=== PATIENT | male | born 1960 | race Caucasian/White ===

== ENCOUNTER 2017-12-27 13:38 | Inpatient (IN) ==
[2017-12-27] MEDS ORDERED: Sodium Chloride 0.9% 1,000 ML PRIMARY IV ONE (14:00)
--- NOTE | 2017-12-27 14:17 | EKG ---
[address] [address] Measurements Intervals [place] Rate: 89 P: 63 PA: 142 QRS: 74 QRSD: 105 T: 47 QT: 349 QTc: 395 Interpretive Statements SINUS RHYTHM WITH SINUS ARRHYTHMIA No previous ECG available for comparison Electronically Signed On 12-27-17 17:04:43 MDT by Horacio Baeza [email or web address]
[2017-12-27 14:20] LABS: BASOPHILS % (AUTO) 1.2 % (0-1); EOSINOPHILS # (AUTO) 0.18 10*3/UL; EOSINOPHILS % (AUTO) 2.1 % (0-8); Hematocrit [HCT] 40.8 % (42.0-52.0); Hemoglobin [HGB] 14.5 g/dL (14.0-18.0); LYMPHOCYTES # (AUTO) 1.64 10*3/uL; MEAN CORPUSCULAR HEMOGLOBIN 32.2 PG (27-31); MEAN CORPUSCULAR HGB CONC 35.5 g/dL (33-37); MEAN CORPUSCULAR VOLUME 90.7 FL (80-90); MEAN PLATELET VOLUME 9.7 FL (7.4-12.2); MONOCYTES # (AUTO) 0.98 10*3/UL (0.3-0.8); MONOCYTES % (AUTO) 11.3 % (5-15); NEUTROPHILS # (AUTO) 5.73 10*3/UL; NEUTROPHILS % (AUTO) 66.3 % (50-80)
[2017-12-27 14:27] LABS: PLATELET MORPHOLOGY COMMENT NORMAL MORPHOLOGY (NORM); RBC MORPHOLOGY COMMENT NORMAL MORPHOLOGY (NORM); WBC MORPHOLOGY COMMENT NORMAL MORPHOLOGY (NORM)
[2017-12-27 14:31] LABS: BLOOD UREA NITROGEN 29 mg/dL (7-22); BUN/CREATININE RATIO 24.16 (6-20); SERUM ALBUMIN 4.4 g/dL (3.5-4.8)
[2017-12-27 14:38] LABS: HEMOGLOBIN A1C 6.97 % (4.2-6.0)
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
--- NOTE | 2017-12-27 15:53 | DI ---
XR FOOT COMPLETE MIN 3VW 12/27/2017 2:01 PM HISTORY: foot ulcer Comparison: None. Findings: Portable AP, lateral, and oblique views of the right foot show no acute fracture or disloca tion. Early tibiotalar subchondral sclerosis and marginal osteophyte formation is present. There is a small heel spur. Early distal Achilles enthesopathy is noted. Atheromatous vascular calcifications are present in the soft tissues of the distal lower extremity. There is soft tissue thickening with s uperficial gas overlying the plantar aspect of the distal aspect of the lateral forefoot, consistent with reported history of ulcer. There is no underlying periosteal elevation or cortical erosion. Impression: 1. There is evidence of an ulcer in the soft tissues overlying the plantar aspect of the distal later al forefoot. There is no radiographic evidence of osteomyelitis. Bone scan and MRI are more sensitive . 2. Tibiotalar osteoarthritis. 3. Small heel spur. 4. Early distal Achilles enthesopathy.
[2017-12-27] MEDS ORDERED: ONDANSETRON 4 MG/2 ML VIAL IVP PRN (16:17)
[2017-12-27] MEDS ORDERED: CALCIUM CARBONATE 500 MG (TUMS) CHEWABLE TABLET PO PRN (16:17)
[2017-12-27] MEDS ORDERED: LIDOCAINE W/ SODIUM BICARB 0.5 ML SYR SUBD PRN (16:17)
[2017-12-27] MEDS ORDERED: ACETAMINOPHEN 325 MG TABLET PO PRN (16:17)
--- NOTE | 2017-12-27 16:22 | PDOC ---
HPI - History of Present Illness Date of Service: 12/27/17 Time of Service: 16:30 Chief Complaint: Sores one of the bottom of the right foot and 1 and the lateral side of the foot History of Present Illness: This is a 57 years old male with medical history significant for history of diabetes, hypertension and depression who came into the hospital with a two- week history of sores on the right foot. He said about 2 weeks ago developed one on the lateral aspect of the right foot and a week ago developed one on the sole of the foot in the area of the fifth metatarsal head. There is some drainage and the area looks bigger than what it was and there is some redness on the dorsum of the foot and because of that he came into the ER. In the ER was found to have a diabetic foot ulcer infection and was admitted to the hospital. He said he has some pain when he puts weight on it but he has a decreased sensation apparently on the soles of his feet. He is denying fever or chills. Past Medical History Medical History: 1. Diabetes on insulin for about 10 years. 2. Hypertension. 3. Depression Surgical History: 1. History of tonsillectomy. 2. History of surgery for nasal fracture from his description Family History: Reviewed an Not Pertinent Past Social History: He does not smoke, quit drinking 5 months ago no drugs. He Just moved to [place] yesterday from [place]. He is originally from [place] and moved here for work. He works at [employer] and at [employer]. Tobacco Use: Never Smoker In the Past 12 Months, Have Used or Abuse Any of the Following Substance: None Alcohol Use: None Medication / Allergies Home Medications: Home Medications 3 Medication Instructions Recorded Confirmed Type Aripiprazole [Abilify] 10 mg PO DAILY 12/27/17 12/27/17 History Insulin NPL/Insulin Lispro 50 unit SUBCUT BID 12/27/17 12/27/17 History [Humalog Mix 75-25 Pen] Lisinopril 40 mg PO DAILY 12/27/17 12/27/17 History Metformin HCl 1,000 mg PO BID 12/27/17 12/27/17 History Venlafaxine HCl [Effexor] 75 mg PO DAILY 12/27/17 12/27/17 History Venlafaxine HCl [Effexor] 100 mg PO DAILY 12/27/17 12/27/17 History Allergies/Adverse Reactions: Allergies 3 Allergy/AdvReac Type Severity Reaction Status Date / Time No Known Allergies Allergy Verified 12/27/17 13:48 Review of Systems - Review of Systems All Systems: Reviewed & No Additional Complaints Except as Stated Exam - Vitals Vital Signs: Vital Signs Temperature 97.6 F Temperature Source Temporal Artery Scan Pulse Rate [Pulse Oximeter 99 Right] Respiratory Rate 16 Blood Pressure [Left Arm] 150/71 Pulse Ox 93 Oxygen Delivery Method Room Air Height 6 ft 1 in Weight 228 lb 14.4 oz - General General Appearance: No Acute Distress, Cooperative - Head Head Exam: Normal Inspection - Eye Eye Exam: POSITIVE: Normal Appearance - ENT ENT Exam: POSITIVE: Normal Exam - Neck Neck Exam: Normal Inspection - Respiratory Respiratory Exam: POSITIVE: Clear to Auscultation - Bilaterally - Cardiovascular Cardiovascular Exam: POSITIVE: RRR - GI/Abdominal GI/Abdominal Exam: POSITIVE: Normal Bowel Sounds, Non Tender, Non Distended, Soft, No Organomegaly - Rectal Rectal Exam: POSITIVE: Deferred - External Exam: POSITIVE: Deferred Exam: POSITIVE: Deferred - Extremities Additional Extremities Exam Details: 2 ulcers one on the lateral aspect of the right foot and one on the head of the right fifth metatarsal. There is erythema on the dorsum of the foot and also the lateral aspect of it. No much tenderness. There is some discoloration around the ulceration. Pulses were present on the posterior dorsal. I could not feel the posterior tibial artery well. There is also black eschar at the base of the ulcer. Results - Labs CBC and BMP: 12/27/17 14:05 12/27/17 14:05 - EKG Data Rate: Normal EKG Shows Normal: Sinus Rhythm - EKG Data When Compared to Previous EKG(s) There Are: Other (EKG showed sinus rhythm with sinus arrhythmia) - Imaging Status: Report Reviewed by Me (X-ray foot 1. There is evidence of an ulcer in the soft tissues overlying the plantar aspect of the distal lateral forefoot. There is no radiographic evidence of osteomyelitis. Bone scan and MRI are more sensitive. 2. Tibiotalar osteoarthritis. 3. Small heel spur. 4. Early distal Achilles enthesopathy.) Assessment and Plan - Patient Problems (1) Diabetic foot ulcer Current Visit: Yes Status: Acute Comment: We'll start him on ertapenem, I did speak with Dr. Pedraza and he will see him. Code(s): E11.621 - Type 2 diabetes mellitus with foot ulcer; L97.509 - Non- pressure chronic ulcer of other part of unspecified foot with unspecified severity (2) Diabetes Current Visit: Yes Status: Acute Comment: Will Put him on his insulin. We'll watch his blood sugar. Code(s): E11.9 - Type 2 diabetes mellitus without complications (3) Depression Current Visit: Yes Status: Acute Comment: Same medications Code(s): F32.9 - Major depressive disorder, single episode, unspecified (4) Hypertension Current Visit: Yes Status: Acute Comment: Same med Code(s): I10 - Essential (primary) hypertension
[2017-12-27] MEDS ORDERED: Hold Metformin-See Instruction 1 EACH MIS PRN (17:14)
--- NOTE | 2017-12-27 17:39 | CONSULT ---
Consult Note - Consult Reason for Consult: Orthopedic Consult Primary Care Provider: Marvin CHRISTOPHER - History of Present Illness History of Present Illness: Benigno is a pleasant 57-year-old male admitted for a diabetic right foot ulcer. This is been going on for approximately 2 weeks. 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 He noticed that it is been increasing in size and redness has been increasing. For that reason he came in today and was admitted to Dr. Springer's service. Dr. Springer asked me to see the patient. He had x- rays of his right foot that don't show any bony destruction at this point. The x-rays do show soft tissue ulceration. Patient has some soreness associated with this. He is very concerned about getting back to work as soon as possible. Denies feeling poorly. No fevers or chills reported. Vital signs are stable patient is afebrile. Right foot exam reveals a proximally 3-4 cm area of necrosis along the lateral aspect of the right foot. There is some thick callus over the top of this that I debrided with scissors. There is a foul odor present. The skin in this area appears dark purple almost black. There is some discharge coming from the midportion of the involved area. There is also epidermal lysis tracking along the plantar aspect of the foot toward the mid part of the foot. There is some associated cellulitis. MRI is pending. C-reactive protein is 2.2. White blood cell count is 8000 with no left shift. Impression is diabetic foot ulcer with cellulitis and foul order. Possible early-stage osteomyelitis. Plan: Is to get an MRI in the morning. Depending on the findings of the MRI, plan at least an I&D of the foot. Possible fifth ray amputation depending on the bony involvement. I will see him in the morning. We will keep him nothing by mouth after midnight. Past Medical History Medical History: 1. Diabetes on insulin for about 10 years. 2. Hypertension. 3. Depression Surgical History: 1. History of tonsillectomy. 2. History of surgery for nasal fracture from his description Family History: Reviewed an Not Pertinent Past Social History: He does not smoke, quit drinking 5 months ago no drugs. He Just moved to [place] yesterday from [place]. He is originally from [place] and moved here for work. 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 Tobacco Use: Never Smoker In the Past 12 Months, Have Used or Abuse Any of the Following Substance: None Alcohol Use: None Medication / Allergies Home Medications: Home Medications 3 Medication Instructions Recorded Confirmed Type Aripiprazole [Abilify] 10 mg PO DAILY 12/27/17 12/27/17 History Insulin NPL/Insulin Lispro 50 unit SUBCUT BID 12/27/17 12/27/17 History [Humalog Mix 75-25 Pen] Lisinopril 40 mg PO DAILY 12/27/17 12/27/17 History Metformin HCl 1,000 mg PO BID 12/27/17 12/27/17 History Venlafaxine HCl [Effexor] 75 mg PO DAILY 12/27/17 12/27/17 History Venlafaxine HCl [Effexor] 100 mg PO DAILY 12/27/17 12/27/17 History Allergies/Adverse Reactions: Allergies 3 Allergy/AdvReac Type Severity Reaction Status Date / Time No Known Allergies Allergy Verified 12/27/17 13:48 Exam - Vitals Vital Signs: Vital Signs Temperature 98 F Temperature Source Temporal Artery Scan Pulse Rate [Pulse Oximeter 87 Right] Pulse Rate 86 Respiratory Rate 18 Blood Pressure [Left Arm] 132/74 Blood Pressure 145/80 Pulse Ox 94 Oxygen Delivery Method Room Air Height 6 ft 1 in Weight 228 lb 14.4 oz Results - Labs CBC and BMP: 12/27/17 14:05 12/27/17 14:05
[2017-12-27] MEDS: Ertapenem Inj 1 GM in Sodium Chloride 0.9% 100 ML IV SCH (18:29)
[2017-12-27] MEDS ORDERED: Insulin NPH/Reg 70/30 Kwikpen 100 UNIT/ML INSULN.PEN SUBCUT SCH (21:00)
[2017-12-28] MEDS: D5-1/2NS 1,000 ML PRIMARY IV SCH ×3 (03:33→21:26)
[2017-12-28 05:35] LABS: Hematocrit [HCT] 41.1 % (42.0-52.0); Hemoglobin [HGB] 14.2 g/dL (14.0-18.0); MEAN CORPUSCULAR HEMOGLOBIN 31.5 PG (27-31); MEAN CORPUSCULAR HGB CONC 34.5 g/dL (33-37); MEAN CORPUSCULAR VOLUME 91.1 FL (80-90); RED BLOOD COUNT 4.51 10^6/uL (4.70-6.10)
[2017-12-28 06:00] LABS: BLOOD UREA NITROGEN 21 mg/dL (7-22); BUN/CREATININE RATIO 26.25 (6-20); SERUM ALBUMIN 3.8 g/dL (3.5-4.8)
[2017-12-28 06:19] LABS: BAND NEUTROPHILS % 0 % (0-10); BASOPHILS % (MANUAL) 1 % (0-1); EOSINOPHILS % (MANUAL) 3 % (0-8); METAMYELOCYTES % 0 %; MONOCYTES % (MANUAL) 9 % (0-12); MYELOCYTES % 0 %; NEUTROPHILS % (MANUAL) 57 % (50-80); PLATELET MORPHOLOGY COMMENT NORMAL MORPHOLOGY (NORM); PROMYELOCYTES % 0 %; RBC MORPHOLOGY COMMENT NORMAL MORPHOLOGY (NORM); WBC MORPHOLOGY COMMENT NORMAL MORPHOLOGY (NORM)
[2017-12-28] MEDS ORDERED: BUPivacaine Inj 0.5% PF (5mg/ml) 30ml vial ONE (08:23)
[2017-12-28] MEDS ORDERED: LISINOPRIL 20 MG TABLET PO SCH (09:00)
--- NOTE | 2017-12-28 09:59 | PDOC(PROG) ---
Date of Service: 12/28/17 Time of Service: 10:00 Interval History: Subjective Patient is denying new symptoms. Doesn't have much pain while he is laying down. He did not have his MRI yet. Objective : Data - Labs CBC and BMP: 12/28/17 04:45 12/28/17 04:45 Objective : Exam - General General Appearance: No Acute Distress, Cooperative - Head Head Exam: Normal Inspection - Eye Eye Exam: Normal Appearance - ENT ENT Exam: Normal Exam - Neck Neck Exam: Normal Inspection - Respiratory Respiratory Exam: Clear to Auscultation - Bilaterally - Cardiovascular Cardiovascular Exam: RRR - GI/Abdominal GI/Abdominal Exam: Normal Bowel Sounds, Non Tender, Non Distended, Soft, No Organomegaly - Rectal Rectal Exam: Deferred - External Exam: Deferred - Extremities Additional Extremities Exam Details: Dressing applied to the right foot - Back Back Exam: Normal Inspection - Neurological Neurological Exam: Alert, Oriented x 3, CN II-XII Intact, No Facial Droop, Speech Intact / Clear, Moves All Extremities Equally - Psychiatric Psychiatric Exam: Normal Affect Assessment and Plan - Patient Problems (1) Diabetic foot ulcer Current Visit: Yes Status: Acute Comment: He'll have an MRI today. Continue ertapenem. Probably I&D again today by Dr. Pedraza. Code(s): E11.621 - Type 2 diabetes mellitus with foot ulcer; L97.509 - Non- pressure chronic ulcer of other part of unspecified foot with unspecified severity (2) Diabetes Current Visit: Yes Status: Acute Comment: Will put him on the 70/30 postsurgery Code(s): E11.9 - Type 2 diabetes mellitus without complications (3) Depression Current Visit: Yes Status: Acute Comment: Same med Code(s): F32.9 - Major depressive disorder, single episode, unspecified (4) Hypertension Current Visit: Yes Status: Acute Comment: Hold lisinopril for now Code(s): I10 - Essential (primary) hypertension
[2017-12-28] MEDS: VENLAFAXINE XR 75 MG CAP PO SCH (11:24)
[2017-12-28] MEDS: ARIPIPRAZOLE 10 MG PO SCH (11:24)
[2017-12-28] MEDS: Insulin NPH/Reg 70/30 Kwikpen 100 UNIT/ML INSULN.PEN SUBCUT SCH ×2 (13:39→20:11)
[2017-12-28] MEDS: Lactated Ringers 1,000 ML PRIMARY IV SCH (14:19)
[2017-12-28] MEDS ORDERED: BUPivacaine 0.5%/Epi Inj 50 ML VIAL ONE (15:03)
[2017-12-28] MEDS ORDERED: LIDOCAINE 2%/ EPI 1:200,000 - 20 ML VIAL ONE (15:03)
[2017-12-28] MEDS ORDERED: fentaNYL Inj 250 MCG/5 ML VIAL ONE (15:04)
[2017-12-28] MEDS ORDERED: MIDAZOLAM 5 MG/1 ML ONE (15:04)
[2017-12-28] MEDS ORDERED: LIDOCAINE W/ SODIUM BICARB 0.5 ML SYR ONE (15:07)
--- NOTE | 2017-12-28 15:15 | ORTHO.PROG ---
Last Taken Vital Signs: Vital Signs - Last Taken Temperature 97.5 F 12/28/17 12:18 Pulse Rate 66 12/28/17 12:18 Respiratory Rate 18 12/28/17 12:18 Blood Pressure 116/66 12/28/17 12:18 Pulse Ox 91 12/28/17 12:18 Subjective: Patient had his MRI today. Doesn't report significant amount pain. Objective: Vital signs are stable patient is afebrile. Right foot shows black eschar underneath the fifth metatarsal head. There is some cellulitis associated with it. Mild drainage. MRI does not show any enhancement of the fifth metatarsal or the proximal phalanx. There is some fluid seen underneath the fifth MTP joint region appears to be extra capsular. Assessment: Impression: Diabetic foot ulcer with cellulitis. Plan: Plan: I have discussed the options with the patient. Do not feel like he needs a fifth reamputation given the fact that the bone is not involved on MRI. I think is reasonable to consider an I&D. The risks with this include delayed healing, need for dressing changes, and even the possibility of need for further surgery in the future. He understands this and agrees to proceed. Consent form will be signed.
--- NOTE | 2017-12-28 15:28 | CRNA.PROCE ---
Nerve Block Documentation - - Type of Nerve Block Used: Right Popliteal Fossa Block Position for Nerve Block: Prone Moniters Used During Block: SPO2, NIBP Oxygen Supplemented: Yes Sedation Used - Enter Amount in Comment Field [ANES.SEDAT]: Midazolam (mg): Yes (2mg), Fentanyl (mcg): Yes (50mcg) Skin Prep Used: ChloroPrep Draped: No Technique: Nerve Stimulator Nerve Block Needle Used: 80 mm ProBlk II Stimulation Hz: 1.0 Stimulation Staring mA: 1.0 Stimulation Ending mA: 0.4 Local Anesthetic - Enter Amt in Comment Field [ANES.LOCNB]: 0.5 % Bupivicaine with Epinephrine 1:200,000 (mL): Yes (20cc), 2 % Xylocaine with Epinephrine 1: 200,000 (mL): Yes (20cc) - - PreOp Block : Time In: 15:03 PreOp Block : Time Out: 15:18 Anesthesia Time - Other Weight: 98.747 kg Height: 6 ft 1 in Body Mass Index (BMI): 28.7
[2017-12-28] MEDS ORDERED: PROPOFOL 10 MG/1 ML (200 MG/20 ML) VIAL IV ONE (15:31)
[2017-12-28] MEDS ORDERED: NEOMYCIN/BACITRACIN/POLYMYXIN 0.9 GM OINT PACKET TOPICAL ONE (16:14)
--- NOTE | 2017-12-28 16:44 | ORTHO.OP ---
Surgery Date: 12/28/17 Preoperative Diagnosis: Right diabetic foot ulcer Postoperative Diagnosis: Same Procedure: Irrigation and debridement of right diabetic foot ulcer Surgeon: Silas Pedraza MD Anesthesia Provider: Sidney Villanueva CRNA Anesthesia Type: Regional Estimated Blood Loss (mL): 10 Fluids: Crystalloids Complications: None Operative Summary: Taken to recovery in stable condition.
--- NOTE | 2017-12-28 16:45 | CRNA.PROGR ---
Anesthesia Time - Procedure/Recovery Time Start Date: 12/28/17 End Date: 12/28/17 Anesthesia : Time In: 15:45 Anesthesia : Time Out: 16:43 Anesthesia : Total Time: 58 - Block Time Start Date: 12/28/17 End Date: 12/28/17 PreOp Block : Time In: 15:03 PreOp Block : Time Out: 15:18 PreOp Block : Total Time: 15 - Total Anesthesia Time Total Anesthesia Time (minutes): 73 - Other Weight: 98.747 kg Height: 6 ft 1 in Body Mass Index (BMI): 28.7 Physical Status: P2 (with sedation) Anesthesia Type: Popliteal Fossa Block (with sedation)
--- NOTE | 2017-12-28 16:45 | CRNA.PROGR ---
Post Anesthesia Phase II - Post Anesthesia Phase II Patient Stable and Discharged To: Phase II Care Assumed By Surgeon: Silas Pedraza MD Temperature: 97.5 F Pulse Rate: 86 Respiratory Rate: 18 Blood Pressure: 145/80 Pulse Ox: 91 Total Slava Score at Discharge: 9 Post Anesthesia Discharge Criteria Met: Yes
[2017-12-28] MEDS: Ertapenem Inj 1 GM in Sodium Chloride 0.9% 100 ML IV SCH (19:08)
--- NOTE | 2017-12-28 23:28 | DI ---
MRI Lower Extremity WWO Contst 12/28/2017 7:00 AM History: ulcer right foot COMPARISON: Right foot x-ray 12/27/2017. TECHNIQUE: Routine multiecho multiplanar MR imaging of the right foot was performed without and with contrast. 20 mL of ProHance intravenous contrast was administered without immediate complication. FINDINGS: A skin defect is noted along the plantar aspect of the distal lateral forefoot. There is a 10 x 2 mm fluid collection underlying the defect in the deep soft tissues superficial to the flexor t endon and plantar plate of the fifth ray. The fluid collection does not enhance following the adminis tration of intravenous contrast. There is no underlying cortical disruption of the fifth metatarsal o r bone marrow edema to suggest osteomyelitis. Alignment is normal. There is no acute fracture. The extensor and flexor tendons demonstrate normal signal and morphology. The plantar plates are inta ct. The LisFranc ligament is intact. Imaged portions of the plantar fascia are unremarkable. The sesa moids exhibit normal MR morphology. There are no significant arthritic changes. There is moderate marcos ma of the intrinsic musculature of the foot. IMPRESSION: 1. Small nonenhancing fluid collection in the plantar aspect of the distal lateral forefoot without M R findings to suggest osteomyelitis. 2. Moderate edema of the intrinsic musculature of the foot.
[2017-12-29] MEDS: VENLAFAXINE XR 75 MG CAP PO SCH (09:30)
[2017-12-29] MEDS: Insulin NPH/Reg 70/30 Kwikpen 100 UNIT/ML INSULN.PEN SUBCUT SCH ×2 (09:31→12:20)
[2017-12-29] MEDS: ARIPIPRAZOLE 10 MG PO SCH (09:31)
[2017-12-29 11:52] VITALS: BP 142/73; RESP 16; TEMP 97.7; O2SAT 94
[2017-12-29] MEDS: Lactated Ringers 1,000 ML PRIMARY IV SCH (13:37)
[2017-12-29] MEDS ORDERED: NEOMYCIN/BACITRACIN/POLYMYXIN 0.9 GM OINT PACKET TOPICAL PRN (15:00)
[2017-12-29] MEDS: Ertapenem Inj 1 GM in Sodium Chloride 0.9% 100 ML IV SCH (15:06)
--- NOTE | 2017-12-29 15:19 | DCSUMMARY ---
Hospitalization Summary Admit Date: 12/27/2017 Discharge Date: 12/29/17 Hospital Course: Discharge diagnoses 1. Diabetic foot ulcer status post incision and drainage 2. History of diabetes 3. History of hypertension 4. History of depression 5. Elevated LFTs need follow-up Hospital course This is a 57 years old male with medical history significant for history of diabetes, hypertension and depression who came into the hospital with a two- week history of sores on his right foot. He said about 2 weeks ago he developed one on the lateral aspect of the right foot and a week ago he developed one on the sole of the foot in the area of the fifth metatarsal head. There was some drainage and the area looked bigger now than what it was and there is some redness on the dorsum of the foot and because of that he came into the ER. In the ER he was found to have a diabetic foot ulcer infection and was brought to the hospital. He did say that he had some pain when he put some weight on his foot but he has a decreased sensation to the sole of both feet. He was denying fever or chills. His white count was not elevated. His exam was remarkable for presence of 2 ulcers on the foot one of the lateral aspect of the foot and one on the plantar aspect of the head of the fifth metatarsal both on the right foot. There is some slight redness on the dorsum of the foot. There was no significant tenderness. The base of the ulcer was black. An x-ray of the foot did not show evidence for osteomyelitis. An MRI of the foot did not show evidence of osteomyelitis. Dr. Pedraza was consulted and did some bedside debridement and he took him to surgery and did incision and drainage. The next day he was denying complaint. The ER did take a culture from the ulcer when he came in and shows growth of gram-positive cocci. Patient was put on ertapenem when he was admitted to the hospital. On the day of discharge he was doing better. The ulcer looked better after the debridement. I suggested to the patient that we keep him another day and wait for the culture and continue IV antibiotics however he declined to stay. We gave him another dose of ertapenem then we discharge him on Augmentin and doxycycline. He will follow-up with the Dr. Pedraza on Wednesday to change his dressing and reexamin the ulcers. There was some mild elevation in his LFT this need to be followed up later on as an outpatient. Discharge instruction Diet diabetic Activity as tolerated Medications Current Medication(s) 3 Medication Instructions Recorded Confirmed Type Aripiprazole [Abilify] 10 mg PO DAILY 12/27/17 12/27/17 History Insulin NPL/Insulin Lispro 50 unit SUBCUT BID 12/27/17 12/27/17 History [Humalog Mix 75-25 Pen] Lisinopril 40 mg PO DAILY 12/27/17 12/27/17 History Metformin HCl 1,000 mg PO BID 12/27/17 12/27/17 History Venlafaxine HCl [Effexor] 225 mg PO DAILY 12/27/17 12/27/17 History Amoxicillin/Potassium Clav 1 ea PO BID #20 tab 12/29/17 Rx [Augmentin 875-125 Tablet] Doxycycline Hyclate 100 mg PO BID #20 tab 12/29/17 Rx Follow-up with PCP in 1-2 weeks, follow-up with Dr. Pedraza as scheduled on Wednesday Condition at discharge was stable for discharge Exam - Vitals Vital Signs: Vital Signs Temperature 97.7 F Temperature Source Temporal Artery Scan Pulse Rate [Pulse Oximeter 72 Right] Pulse Rate 76 Respiratory Rate 16 Blood Pressure [Right Arm] 142/73 Blood Pressure [Left Arm] 139/67 Blood Pressure 149/73 Pulse Ox 94 Oxygen Flow Rate RA Oxygen Delivery Method Room Air Height 6 ft 1 in Weight 221 lb 12.8 oz - General General Appearance: No Acute Distress, Cooperative - Head Head Exam: Normal Inspection - Eye Eye Exam: POSITIVE: Normal Appearance - Neck Neck Exam: Normal Inspection - Respiratory Respiratory Exam: POSITIVE: Clear to Auscultation - Bilaterally - Cardiovascular Cardiovascular Exam: POSITIVE: RRR - GI/Abdominal GI/Abdominal Exam: POSITIVE: Normal Bowel Sounds, Non Tender, Non Distended, Soft - Rectal Rectal Exam: POSITIVE: Deferred - External Exam: POSITIVE: Deferred Exam: POSITIVE: Deferred - Extremities Additional Extremities Exam Details: Post debridement both ulcers at the head of the left metatarsal and the side of the foot looks better. All the tissue was debrided. There is still some redness on the dorsum of the foot. Area is nontender. No discharge. No foul smells. - Neurological Neurological Exam: POSITIVE: Alert, Oriented x 3, No Facial Droop, Speech Intact / Clear - Psychiatric Psychiatric Exam: POSITIVE: Normal Affect - Integumentary Integumentary Exam: POSITIVE: Normal Color Patient Problems - Patient Problem List (1) Diabetic foot ulcer Status: Acute Code(s): E11.621 - Type 2 diabetes mellitus with foot ulcer; L97.509 - Non-pressure chronic ulcer of other part of unspecified foot with unspecified severity Category: Medical (2) Diabetes Status: Acute Code(s): E11.9 - Type 2 diabetes mellitus without complications Category: Medical (3) Depression Status: Acute Code(s): F32.9 - Major depressive disorder, single episode, unspecified Category: Medical (4) Hypertension Status: Acute Code(s): I10 - Essential (primary) hypertension Category: Medical
--- NOTE | 2017-12-29 15:52 | ORTHO.PROG ---
Last Taken Vital Signs: Vital Signs - Last Taken Temperature 97.7 F 12/29/17 11:52 Pulse Rate 72 12/29/17 11:52 Respiratory Rate 16 12/29/17 11:52 Blood Pressure 142/73 12/29/17 11:52 Pulse Ox 94 12/29/17 11:52 Subjective: Patient sitting on bed. No complaints of pain. Objective: Vital signs stable patient afebrile. Culture results showing gram-positive cocci. Right foot dressing was taken down and dressing change. The ulcerative site looks much tower cleaner since the debridement yesterday. I did a dressing change with antibiotic ointment and Xeroform. Less cellulitis than preop. Assessment: Impression postop day 1 from debridement of diabetic foot ulcer. Patient showing some improvement. Plan: Plan: Is I will see him in the morning. I will see him with han and we will take a mold of his foot and try to get him a custom orthotic to unload the fifth metatarsal head. This will be done prior to his discharge in the morning. I will try to do his dressing changes every other day here in the office.
== END 2017-12-29 16:00 | disposition home or self-care (01) | DRG 639 ==
LOC: ER 13:38 → MED/SURG 15:42 → OPS 12-28 14:54 → MED/SURG 12-28 17:06
PROVIDERS: ADMIT Internal Medicine; ATTEND Internal Medicine

== ENCOUNTER 2018-01-24 13:46 | Inpatient (IN) ==
[2018-01-24] MEDS ORDERED: HYDROmorphone 2 MG/1 ML IVP PRN (14:04)
[2018-01-24] MEDS ORDERED: LIDOCAINE W/ SODIUM BICARB 0.5 ML SYR SUBD PRN (14:04)
[2018-01-24] MEDS ORDERED: ONDANSETRON 4 MG/2 ML VIAL IVP PRN (14:04)
[2018-01-24] MEDS ORDERED: DOCUSATE 100 MG CAPSULE PO PRN (14:04)
[2018-01-24] MEDS ORDERED: CALCIUM CARBONATE 500 MG (TUMS) CHEWABLE TABLET PO PRN (14:04)
[2018-01-24] MEDS ORDERED: HYDROcodone-APAP 5 MG -325 MG TABLET PO PRN (14:04)
[2018-01-24] MEDS ORDERED: Hold Metformin-See Instruction 1 EACH MIS PRN (14:09)
[2018-01-24] MEDS ORDERED: ceFAZolin Inj 2 GM in Sodium Chloride 0.9% 100 ML IV SCH (14:15)
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
[2018-01-24] MEDS ORDERED: DEXTROSE 50%-WATER SYRINGE 50 ML SYRINGE IVP PRN (14:21)
[2018-01-24] MEDS ORDERED: Glucagon Inj Vial 1 MG/ML VIAL IM PRN (14:21)
[2018-01-24] MEDS ORDERED: DEXTROSE 31 GM GEL PO PRN (14:21)
[2018-01-24] MEDS ORDERED: Insulin Sliding Scale Protocol SUBCUT PRN (14:21)
[2018-01-24] MEDS ORDERED: PNEUMOCOCCAL 23 VACCINE 25 MCG/0.5 ML VIAL IM ONE (14:32)
[2018-01-24] MEDS ORDERED: Influenza 18-19 Vaccine (6mo+) 60 MCG/0.5 ML SYRINGE IM ONE (14:32)
[2018-01-24 14:37] LABS: BASOPHILS # (AUTO) 0.09 10*3/UL; BASOPHILS % (AUTO) 0.8 % (0-1); EOSINOPHILS # (AUTO) 0.26 10*3/UL; EOSINOPHILS % (AUTO) 2.4 % (0-8); Hematocrit [HCT] 43.7 % (42.0-52.0); Hemoglobin [HGB] 15.1 g/dL (14.0-18.0); LYMPHOCYTES # (AUTO) 2.05 10*3/uL; MEAN CORPUSCULAR HEMOGLOBIN 31.7 PG (27-31); MEAN CORPUSCULAR HGB CONC 34.6 g/dL (33-37); MEAN CORPUSCULAR VOLUME 91.8 FL (80-90); MEAN PLATELET VOLUME 9.9 FL (7.4-12.2); MONOCYTES # (AUTO) 0.94 10*3/UL (0.3-0.8); MONOCYTES % (AUTO) 8.6 % (5-15); NEUTROPHILS # (AUTO) 7.59 10*3/UL; NEUTROPHILS % (AUTO) 69.3 % (50-80); RED BLOOD COUNT 4.76 10^6/uL (4.70-6.10)
[2018-01-24 14:39] LABS: PLATELET MORPHOLOGY COMMENT NORMAL MORPHOLOGY (NORM); RBC MORPHOLOGY COMMENT NORMAL MORPHOLOGY (NORM); WBC MORPHOLOGY COMMENT NORMAL MORPHOLOGY (NORM)
[2018-01-24 14:43] LABS: BLOOD UREA NITROGEN 18 mg/dL (7-22); BUN/CREATININE RATIO 25.71 (6-20); SERUM ALBUMIN 4.3 g/dL (3.5-4.8)
[2018-01-24] MEDS: ACETAMINOPHEN 325 MG TABLET PO PRN (15:15)
[2018-01-24] MEDS: Insulin Lispro Flexpen 300 UNIT/3 ML INSULN.PEN SUBCUT SCH ×2 (16:17→21:32)
--- NOTE | 2018-01-24 18:48 | DI ---
MRI Lower Extremity ELDON Galo,01/24/2018 2:09 PM: Clinical History: Right fifth toe cellulitis question osteomyelitis. Previous Exam: None at this facility. Findings: Multiplanar MR images are obtained through the right foot both before and after the intravenous demon stration of 20 mL of ProHance. Bony alignment is anatomic. No fractures are seen. There is some mild bony edema involving the fifth metatarsophalangeal joint. There is enhancement of this marrow as well. There is no evidence of abscess nor fluid collection. The major vascular structures are unremarkable. The flexor and extensor tendons are unremarkable. There is some diffuse edema. Impression: Bony edema and enhancement of the bone surrounding the fifth metatarsophalangeal joint. This meets di agnostic criteria for osteomyelitis. There is no associated abscess. Differential diagnosis includes reactive marrow and can be secondary to postsurgical change or trauma .
[2018-01-24] MEDS ORDERED: ceFAZolin Inj 2gm (Premix) 2 GM/50 ML BAG IV SCH (20:30)
[2018-01-24] MEDS: Insulin NPH/Reg 70/30 Kwikpen 100 UNIT/ML INSULN.PEN SUBCUT SCH (22:07)
[2018-01-24] MEDS: ceFAZolin Inj 2gm (Premix) 2 GM/50 ML BAG IV SCH (22:52)
[2018-01-25] MEDS: ACETAMINOPHEN 325 MG TABLET PO PRN (04:33)
[2018-01-25 05:21] LABS: BASOPHILS # (AUTO) 0.07 10*3/UL; BASOPHILS % (AUTO) 0.5 % (0-1); EOSINOPHILS % (AUTO) 1.6 % (0-8); Hematocrit [HCT] 42.6 % (42.0-52.0); Hemoglobin [HGB] 14.5 g/dL (14.0-18.0); LYMPHOCYTES # (AUTO) 1.46 10*3/uL; MEAN CORPUSCULAR HEMOGLOBIN 31.2 PG (27-31); MEAN CORPUSCULAR VOLUME 91.6 FL (80-90); MEAN PLATELET VOLUME 10.1 FL (7.4-12.2); MONOCYTES # (AUTO) 1.11 10*3/UL (0.3-0.8); MONOCYTES % (AUTO) 8.6 % (5-15); NEUTROPHILS # (AUTO) 9.98 10*3/UL; NEUTROPHILS % (AUTO) 77.7 % (50-80); RED BLOOD COUNT 4.65 10^6/uL (4.70-6.10)
[2018-01-25 05:27] LABS: PLATELET MORPHOLOGY COMMENT NORMAL MORPHOLOGY (NORM); RBC MORPHOLOGY COMMENT NORMAL MORPHOLOGY (NORM); WBC MORPHOLOGY COMMENT NORMAL MORPHOLOGY (NORM)
[2018-01-25 05:36] LABS: BLOOD UREA NITROGEN 13 mg/dL (7-22); BUN/CREATININE RATIO 18.57 (6-20)
[2018-01-25] MEDS: Insulin Lispro Flexpen 300 UNIT/3 ML INSULN.PEN SUBCUT SCH ×4 (07:06→20:26)
[2018-01-25] MEDS: ceFAZolin Inj 2gm (Premix) 2 GM/50 ML BAG IV SCH ×3 (07:07→21:04)
[2018-01-25] MEDS ORDERED: VENLAFAXINE XR 75 MG CAP PO SCH (09:00)
[2018-01-25] MEDS ORDERED: ARIPIPRAZOLE 10 MG PO SCH (09:00)
[2018-01-25] MEDS ORDERED: LISINOPRIL 20 MG TABLET PO SCH (09:00)
--- NOTE | 2018-01-25 09:25 | PDOC(PROG) ---
Date of Service: 01/25/18 Time of Service: 09:30 Interval History: Subjective Patient came into the hospital after being seeing the clinic by Dr. Pedraza. There is more redness to the dorsum of the right foot. He did have some fever last night. He was admitted and had an MRI which showed osteomyelitis. Pain seemed to be controlled Objective : Data - Labs CBC and BMP: 01/25/18 04:30 01/25/18 04:30 Objective : Exam - General General Appearance: No Acute Distress, Cooperative - Head Head Exam: Normal Inspection - Eye Eye Exam: Normal Appearance - ENT ENT Exam: Normal Exam - Neck Neck Exam: Normal Inspection - Respiratory Respiratory Exam: Clear to Auscultation - Bilaterally - Cardiovascular Cardiovascular Exam: RRR - GI/Abdominal GI/Abdominal Exam: Normal Bowel Sounds, Non Tender, Non Distended, Soft, No Organomegaly - Rectal Rectal Exam: Deferred - External Exam: Deferred Exam: Deferred - Extremities Additional Extremities Exam Details: There is redness dorsum of the right foot. There is an ulcer on the base of the fifth metatarsal. - Back Back Exam: Normal Inspection - Neurological Neurological Exam: Alert, Oriented x 3, CN II-XII Intact, No Facial Droop, Speech Intact / Clear, Moves All Extremities Equally - Psychiatric Psychiatric Exam: Normal Affect Assessment and Plan - Patient Problems (1) Acute osteomyelitis of metatarsal bone of right foot Current Visit: Yes Status: Acute Comment: He is on Ancef continue current antibiotics. He was seen by Dr. Pedraza he'll check if he can take him to surgery today or not. If he will have it today then will put him nothing by mouth. Code(s): M86.171 - Other acute osteomyelitis, right ankle and foot (2) Diabetic foot ulcer Current Visit: No Status: Acute Comment: Continue current antibiotics. Likely surgery today or tomorrow for underlying osteomyelitis. Code(s): E11.621 - Type 2 diabetes mellitus with foot ulcer; L97.509 - Non- pressure chronic ulcer of other part of unspecified foot with unspecified severity Qualifiers: Diabetic foot ulcer location: toe Diabetes mellitus type: type 2 Laterality: right Non-pressure ulcer stage: unspecified non-pressure ulcer stage Qualified Code(s): E11.621 - Type 2 diabetes mellitus with foot ulcer; L97.519 - Non-pressure chronic ulcer of other part of right foot with unspecified severity (3) Diabetes Current Visit: No Status: Acute Comment: Continue current treatment. Code(s): E11.9 - Type 2 diabetes mellitus without complications Qualifiers: Diabetes mellitus type: type 2 Diabetes mellitus intermediate insulin use: with moth exterminator use Diabetes mellitus complication status: with skin complications Diabetes mellitus complication detail: with foot ulcer Qualified Code(s): E11.621 - Type 2 diabetes mellitus with foot ulcer; L97.509 - Non-pressure chronic ulcer of other part of unspecified foot with unspecified severity; Z79.4 - retirement (current) use of insulin (4) Depression Current Visit: No Status: Acute Comment: Same med Code(s): F32.9 - Major depressive disorder, single episode, unspecified Qualifiers: Depression Type: unspecified Qualified Code(s): F32.9 - Major depressive disorder, single episode, unspecified (5) Hypertension Current Visit: No Status: Acute Comment: Same medications Code(s): I10 - Essential (primary) hypertension Qualifiers: Hypertension type: essential hypertension Qualified Code(s): I10 - Essential (primary) hypertension
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
[2018-01-25] MEDS: Insulin NPH/Reg 70/30 Kwikpen 100 UNIT/ML INSULN.PEN SUBCUT SCH ×2 (09:57→20:26)
[2018-01-25] MEDS ORDERED: D5-1/2NS 1,000 ML PRIMARY IV SCH (11:15)
[2018-01-25] MEDS ORDERED: Lactated Ringers 1,000 ML PRIMARY IV SCH (12:45)
[2018-01-25] MEDS ORDERED: BUPIVACAINE 0.5% W/ EPI - 10 ML VIAL ONE (15:14)
[2018-01-25] MEDS ORDERED: LIDOCAINE 2%/ EPI 1:200,000 - 20 ML VIAL ONE (15:14)
[2018-01-25] MEDS ORDERED: fentaNYL Inj 100 MCG/2 ML VIAL ONE (15:14)
[2018-01-25] MEDS ORDERED: MIDAZOLAM HCL 2 MG/2 ML VIAL ONE (15:14)
[2018-01-25] MEDS ORDERED: LIDOCAINE W/ SODIUM BICARB 0.5 ML SYR ONE (15:21)
--- NOTE | 2018-01-25 15:32 | CRNA.PROCE ---
Nerve Block Documentation - - Safety Measures: Time Out Taken, Site Verified - - Type of Nerve Block Used: Right Popliteal Fossa Block Position for Nerve Block: Prone Moniters Used During Block: EKG, SPO2, NIBP Oxygen Supplemented: Yes Sedation Used - Enter Amount in Comment Field [ANES.SEDAT]: Midazolam (mg): Yes (2mg), Fentanyl (mcg): Yes (100mcg) Skin Prep Used: ChloroPrep Technique: Nerve Stimulator Nerve Block Needle Used: 80 mm ProBlk II Stimulation Hz: 1.0 Stimulation Staring mA: 1.2 Stimulation Ending mA: 0.5 Local Anesthetic - Enter Amt in Comment Field [ANES.LOCNB]: 0.5 % Bupivicaine with Epinephrine 1:200,000 (mL): Yes (20ml), 2 % Xylocaine with Epinephrine 1: 200,000 (mL): Yes (20ml) - - PreOp Block : Time In: 15:10 PreOp Block : Time Out: 15:20 Anesthesia Time - Other Weight: 102.965 kg Height: 6 ft Body Mass Index (BMI): 30.7
[2018-01-25] MEDS ORDERED: PROPOFOL 10 MG/1 ML (200 MG/20 ML) VIAL IV ONE ×2 (15:51→16:31)
[2018-01-25] MEDS ORDERED: Sodium Chloride 0.9% vial 10 ML ONE (16:08)
[2018-01-25] MEDS ORDERED: BACITRACIN 50,000 UNIT VIAL IRRIG ONE (16:08)
--- NOTE | 2018-01-25 16:21 | PTI REPORT ---
Thank you for the referral of Benigno Samson. He was seen on 01/24/18 for an inpatient evaluation status post right foot diabetic ulcer. SUBJECTIVE: The patient is a 57-year-old male. The patient reports he has noticed he has had this wound for approximately 4-6 weeks and has been being seen by Dr. Pedraza for it. He states he recently had it x-rayed last Wednesday and no infection was noted in the bone; however, they re-x-rayed it again today and he believes there is no infection. He is scheduled to have an MRI tomorrow. He states Dr. Pedraza wants him to follow up with a physician up in [place]. The patient reports he is a Type II diabetic and has been for the past 10 years. He states his diabetes is somewhat managed through insulin. Even though the patient was seen in bed, he states he has been ambulating with full weight-bearing on his foot. PAST MEDICAL HISTORY: Past medical history can be found in the patient's medical record. OBJECTIVE FINDINGS: The patient denies any pain in the wound bed at this time. He presents with an open wound on the right 5th plantar and lateral surface of the right foot measuring 3 centimeters long x 4 centimeters wide at its greatest length and width with a 1.7 centimeter depth. Photos were taken; please see nursing notes for further detail. At the time it had sanguineous drainage with approximately 70% granulation tissue with well defined borders. The patient is able to perform bed mobility and transfers independently with full weight-bearing on the right lower extremity. He states he has a cast shoe at home but he is not sure where it's at. ASSESSMENT: Problem List: Open wound Risk of infection Physical Therapy Goals: To be met by discharge from inpatient: Patient will promote clean wound healing. Patient will be provided with a cast shoe and instructed on appropriate weight- bearing status. TREATMENT PLAN: Patient will be seen on a PRN basis for wound care per wound presentation. INITIAL TREATMENT: Treatment today consisted of the initial evaluation. The wound was cleansed with wound cleanser and was dressed with Xeroform, an ABD pad, Kerlix, gauze, and Coban. The patient was also issued a cast shoe with verbal instruction on heel weight-bearing with appropriate assistive device. BOBBY
--- NOTE | 2018-01-25 16:35 | PT AM DAY ---
Diagnosis : Diabetic Ulcer on Right Foot AM - Physical Therapy S: At the time of treatment, the therapist accompanied Dr. Pedraza on his rounds. The patient and Dr. Pedraza were discussing amputation surgery either later this afternoon or tomorrow. O: Today's therapy consisted of removal of the old dressing from yesterday which presented with 25% serosanguineous strike through. The area was cleansed with wound cleanser followed by an application of Xeroform, 4x4s, Kerlix, and Coban. A: When speaking with Dr. Pedraza, the patient is okay for heel weight- bearing ambulatory activities with use of bilateral axillary crutches with the cast shoe that he is. The patient was instructed to have his crutches brought from home so we may review gait training with the heel weight-bearing in the cast shoe before discharge. P: Continue seeing patient BID during the week and one time per day over the weekend for transfers, ambulation, and range of motion/strengthening exercises. NATASHAD
[2018-01-25] MEDS ORDERED: NEOMYCIN/BACITRACIN/POLYMYXIN 0.9 GM OINT PACKET TOPICAL ONE (16:41)
--- NOTE | 2018-01-25 16:54 | CRNA.PROGR ---
Anesthesia Time - Procedure/Recovery Time Start Date: 01/25/18 End Date: 01/25/18 Anesthesia : Time In: 15:40 Anesthesia : Time Out: 16:50 Anesthesia : Total Time: 70 - Block Time PreOp Block : Time In: 15:10 PreOp Block : Time Out: 15:20 - Total Anesthesia Time Total Anesthesia Time (minutes): 70 - Other Weight: 102.965 kg Height: 6 ft Body Mass Index (BMI): 30.7 Physical Status: P2 Anesthesia Type: Popliteal Fossa Block
--- NOTE | 2018-01-25 16:54 | CRNA.PROGR ---
Post Anesthesia Phase II - Post Anesthesia Phase II Patient Stable and Discharged To: Phase II Care Assumed By Surgeon: Silas Pedraza MD Temperature: 99.7 F Pulse Rate: 76 Respiratory Rate: 14 Blood Pressure: 99/78 Pulse Ox: 90 Total Slava Score at Discharge: 10 Post Anesthesia Discharge Criteria Met: Yes
--- NOTE | 2018-01-25 17:01 | ORTHO.OP ---
Surgery Date: 01/25/18 Preoperative Diagnosis: Osteomyelitis right fifth ray #2 nonhealing diabetic ulcer right foot fifth MTP joint region Postoperative Diagnosis: Same Procedure: Right fifth ray amputation with open packing. Surgeon: Silas Pedraza MD Anesthesia Provider: José Miguel Washington CRNA Anesthesia Type: Regional, MAC Estimated Blood Loss (mL): 30 Fluids: Crystalloid Findings: Necrotic ulcer right fifth MTP joint region with softening of the proximal phalanx Complications: None Operative Summary: Taken to recovery in stable condition
[2018-01-25] MEDS ORDERED: ACETAMINOPHEN 325 MG TABLET PO PRN (17:25)
[2018-01-25] MEDS ORDERED: DEXTROSE 50%-WATER SYRINGE 50 ML SYRINGE IVP PRN (17:25)
[2018-01-25] MEDS ORDERED: DEXTROSE 31 GM GEL PO PRN (17:25)
[2018-01-25] MEDS ORDERED: DOCUSATE 100 MG CAPSULE PO PRN (17:25)
[2018-01-25] MEDS ORDERED: Glucagon Inj Vial 1 MG/ML VIAL IM PRN (17:25)
[2018-01-25] MEDS ORDERED: ONDANSETRON 4 MG/2 ML VIAL IVP PRN ×2 (17:25)
[2018-01-25] MEDS ORDERED: Hold Metformin-See Instruction 1 EACH MIS PRN (17:25)
[2018-01-25] MEDS ORDERED: CALCIUM CARBONATE 500 MG (TUMS) CHEWABLE TABLET PO PRN (17:25)
[2018-01-25] MEDS ORDERED: LIDOCAINE W/ SODIUM BICARB 0.5 ML SYR SUBD PRN (17:25)
[2018-01-25] MEDS: HYDROcodone-APAP 5 MG -325 MG TABLET PO PRN (22:26)
[2018-01-26] MEDS: HYDROmorphone 2 MG/1 ML IVP PRN ×3 (01:05→11:00)
[2018-01-26] MEDS: HYDROcodone-APAP 5 MG -325 MG TABLET PO PRN ×2 (04:15→08:08)
[2018-01-26] MEDS: ceFAZolin Inj 2gm (Premix) 2 GM/50 ML BAG IV SCH ×3 (05:37→22:35)
[2018-01-26] MEDS ORDERED: Lactated Ringers 1,000 ML PRIMARY IV SCH ×2 (06:30→21:44)
[2018-01-26] MEDS: Insulin Lispro Flexpen 300 UNIT/3 ML INSULN.PEN SUBCUT SCH ×4 (06:44→22:44)
--- NOTE | 2018-01-26 08:16 | PDOC(PROG) ---
Date of Service: 01/26/18 Time of Service: 08:20 Interval History: Subjective Has some pain in his the foot but it's tolerable. He status post ray amputation of the fifth metatarsal of the right foot. He is denying other symptoms. Objective : Data - Labs CBC and BMP: 01/26/18 04:25 01/25/18 04:30 Objective : Exam - General General Appearance: No Acute Distress, Cooperative - Head Head Exam: Normal Inspection - Eye Eye Exam: Normal Appearance - ENT ENT Exam: Normal Exam - Neck Neck Exam: Normal Inspection - Respiratory Respiratory Exam: Clear to Auscultation - Bilaterally - Cardiovascular Cardiovascular Exam: RRR - GI/Abdominal GI/Abdominal Exam: Normal Bowel Sounds, Non Tender, Non Distended, Soft - Rectal Rectal Exam: Deferred - External Exam: Deferred - Extremities Additional Extremities Exam Details: Dressing applied to the right foot. - Back Back Exam: Normal Inspection - Neurological Neurological Exam: Alert, Oriented x 3, CN II-XII Intact, No Facial Droop, Speech Intact / Clear, Moves All Extremities Equally - Psychiatric Psychiatric Exam: Normal Affect Assessment and Plan - Patient Problems (1) Acute osteomyelitis of metatarsal bone of right foot Current Visit: Yes Status: Acute Comment: Status post ray amputation. Dr. Pedraza will take him again to close the wound. I will speak with infectious disease and see their recommendation. Code(s): M86.171 - Other acute osteomyelitis, right ankle and foot (2) Diabetic foot ulcer Current Visit: No Status: Acute Comment: Status post amputation. Continue current antibiotics. Code(s): E11.621 - Type 2 diabetes mellitus with foot ulcer; L97.509 - Non- pressure chronic ulcer of other part of unspecified foot with unspecified severity Qualifiers: Diabetic foot ulcer location: toe Diabetes mellitus type: type 2 Laterality: right Non-pressure ulcer stage: unspecified non-pressure ulcer stage Qualified Code(s): E11.621 - Type 2 diabetes mellitus with foot ulcer; L97.519 - Non-pressure chronic ulcer of other part of right foot with unspecified severity (3) Diabetes Current Visit: No Status: Acute Comment: Same med. Will hold the a.m. insulin because he is nothing by mouth. Code(s): E11.9 - Type 2 diabetes mellitus without complications Qualifiers: Diabetes mellitus type: type 2 Diabetes mellitus longterm insulin use: with longterm use Diabetes mellitus complication status: with skin complications Diabetes mellitus complication detail: with foot ulcer Qualified Code(s): E11.621 - Type 2 diabetes mellitus with foot ulcer; L97.509 - Non-pressure chronic ulcer of other part of unspecified foot with unspecified severity; Z79.4 - long term (current) use of insulin (4) Depression Current Visit: No Status: Acute Comment: Same med Code(s): F32.9 - Major depressive disorder, single episode, unspecified Qualifiers: Depression Type: unspecified Qualified Code(s): F32.9 - Major depressive disorder, single episode, unspecified (5) Hypertension Current Visit: No Status: Acute Comment: Same med Code(s): I10 - Essential (primary) hypertension Qualifiers: Hypertension type: essential hypertension Qualified Code(s): I10 - Essential (primary) hypertension
--- NOTE | 2018-01-26 08:26 | ORTHO.PROG ---
Last Taken Vital Signs: Vital Signs - Last Taken Temperature 98.6 F 01/26/18 04:09 Pulse Rate 70 01/26/18 07:45 Respiratory Rate 18 01/26/18 04:09 Blood Pressure 160/76 01/26/18 04:09 Pulse Ox 90 01/26/18 04:44 Subjective: Patient sitting on edge of bed. Not reporting much pain. Ready to go back for delayed closure of wound today. Objective: Vital signs stable patient afebrile. Right foot dressing clean and dry. Assessment: Impression: Doing well postop day 1 from right fifth ray amputation with open packing. Plan: Plan: Is to take him back to surgery this afternoon for delayed closure of wound. We will figure out his antibiotic regimen post discharge.
[2018-01-26 08:30] LABS: BASOPHILS # (AUTO) 0.07 10*3/UL; BASOPHILS % (AUTO) 0.7 % (0-1); EOSINOPHILS % (AUTO) 1.9 % (0-8); Hemoglobin [HGB] 14.3 g/dL (14.0-18.0); LYMPHOCYTES # (AUTO) 2.24 10*3/uL; MEAN CORPUSCULAR HEMOGLOBIN 31.8 PG (27-31); MEAN CORPUSCULAR VOLUME 93.3 FL (80-90); MEAN PLATELET VOLUME 10.2 FL (7.4-12.2); MONOCYTES # (AUTO) 1.39 10*3/UL (0.3-0.8); MONOCYTES % (AUTO) 13.2 % (5-15); NEUTROPHILS # (AUTO) 6.61 10*3/UL; NEUTROPHILS % (AUTO) 62.6 % (50-80)
[2018-01-26 08:53] LABS: PLATELET MORPHOLOGY COMMENT NORMAL MORPHOLOGY (NORM); RBC MORPHOLOGY COMMENT NORMAL MORPHOLOGY (NORM); WBC MORPHOLOGY COMMENT NORMAL MORPHOLOGY (NORM)
[2018-01-26] MEDS ORDERED: VENLAFAXINE XR 75 MG CAP PO SCH (09:00)
[2018-01-26] MEDS ORDERED: LISINOPRIL 20 MG TABLET PO SCH (09:00)
[2018-01-26] MEDS: Insulin NPH/Reg 70/30 Kwikpen 100 UNIT/ML INSULN.PEN SUBCUT SCH ×2 (09:00→22:44)
[2018-01-26] MEDS ORDERED: LIDOCAINE 2%/ EPI 1:200,000 - 20 ML VIAL ONE (19:07)
[2018-01-26] MEDS ORDERED: MIDAZOLAM 5 MG/1 ML ONE (19:07)
[2018-01-26] MEDS ORDERED: cloNIDine HCL/PF 100 MCG/ML - 10 ML VIAL ONE (19:07)
[2018-01-26] MEDS ORDERED: fentaNYL Inj 100 MCG/2 ML VIAL ONE (19:07)
[2018-01-26] MEDS ORDERED: BUPivacaine Inj 0.5% PF (5mg/ml) 30ml vial ONE (19:07)
[2018-01-26] MEDS ORDERED: LIDOCAINE W/ SODIUM BICARB 0.5 ML SYR ONE (19:13)
[2018-01-26] MEDS ORDERED: PROPOFOL 10 MG/1 ML (200 MG/20 ML) VIAL IV ONE ×2 (19:23→20:09)
[2018-01-26] MEDS ORDERED: NEOMYCIN/BACITRACIN/POLYMYXIN 0.9 GM OINT PACKET TOPICAL ONE (20:27)
--- NOTE | 2018-01-26 20:38 | ORTHO.OP ---
Surgery Date: 01/26/18 Preoperative Diagnosis: Osteomyelitis right fifth ray, status post I&D with fifth ray amputation Postoperative Diagnosis: Same Procedure: Irrigation and debridement with delayed primary closure of right fifth ray amputation Surgeon: Silas Pedraza MD Anesthesia Provider: Sidney Villanueva CRNA Anesthesia Type: Regional Estimated Blood Loss (mL): 20 Fluids: Crystalloid Complications: None Operative Summary: Taken to recovery in stable condition
--- NOTE | 2018-01-26 20:40 | CRNA.PROCE ---
Nerve Block Documentation - - Type of Nerve Block Used: Right Popliteal Fossa Block Position for Nerve Block: Prone Moniters Used During Block: EKG, SPO2, NIBP Sedation Used - Enter Amount in Comment Field [ANES.SEDAT]: Midazolam (mg): Yes (2mg), Fentanyl (mcg): Yes (50mcg) Skin Prep Used: ChloroPrep Nerve Block Needle Used: EchoHipFlat 50 mm Stimulation Hz: 2 Stimulation Staring mA: 1.4 Stimulation Ending mA: 0.44 Local Anesthetic - Enter Amt in Comment Field [ANES.LOCNB]: 0.5 % Bupivacaine Plain (mL): Yes (20ml), 2 % Xylocaine with Epinephrine 1:200,000 (mL): Yes (20ml ) Additives to Nerve Blocks: Clonidine (mg): Yes (100mcg) - - PreOp Block : Time In: 19:03 PreOp Block : Time Out: 19:18 Anesthesia Time - Block Time PreOp Block : Time In: 15:10 PreOp Block : Time Out: 15:20 - Other Weight: 102.693 kg Height: 6 ft Body Mass Index (BMI): 30.7
--- NOTE | 2018-01-26 20:40 | CRNA.PROGR ---
Post Anesthesia Phase II - Post Anesthesia Phase II Patient Stable and Discharged To: Phase II Care Assumed By Surgeon: Silas Pedraza MD Temperature: 97 F Pulse Rate: 88 Respiratory Rate: 20 Blood Pressure: 109/69 Pulse Ox: 90 Total Slava Score at Discharge: 10 Post Anesthesia Discharge Criteria Met: Yes
--- NOTE | 2018-01-26 20:41 | CRNA.PROGR ---
Anesthesia Time - Procedure/Recovery Time Start Date: 01/26/18 End Date: 01/26/18 Anesthesia : Time In: 19:24 Anesthesia : Time Out: 20:36 Anesthesia : Total Time: 72 - Block Time Start Date: 01/26/18 End Date: 01/26/18 PreOp Block : Time In: 15:10 PreOp Block : Time Out: 15:20 PreOp Block : Total Time: 10 - Total Anesthesia Time Total Anesthesia Time (minutes): 82 - Other Weight: 102.693 kg Height: 6 ft Body Mass Index (BMI): 30.7
[2018-01-26] MEDS ORDERED: Glucagon Inj Vial 1 MG/ML VIAL IM PRN (21:44)
[2018-01-26] MEDS ORDERED: ACETAMINOPHEN 325 MG TABLET PO PRN (21:44)
[2018-01-26] MEDS ORDERED: CALCIUM CARBONATE 500 MG (TUMS) CHEWABLE TABLET PO PRN (21:44)
[2018-01-26] MEDS ORDERED: DEXTROSE 50%-WATER SYRINGE 50 ML SYRINGE IVP PRN (21:44)
[2018-01-26] MEDS ORDERED: LIDOCAINE W/ SODIUM BICARB 0.5 ML SYR SUBD PRN (21:44)
[2018-01-26] MEDS ORDERED: DOCUSATE 100 MG CAPSULE PO PRN (21:44)
[2018-01-26] MEDS ORDERED: ONDANSETRON 4 MG/2 ML VIAL IVP PRN ×2 (21:44)
[2018-01-26] MEDS ORDERED: Hold Metformin-See Instruction 1 EACH MIS PRN (21:44)
[2018-01-26] MEDS ORDERED: DEXTROSE 31 GM GEL PO PRN (21:44)
[2018-01-27] MEDS: HYDROcodone-APAP 5 MG -325 MG TABLET PO PRN ×3 (00:58→11:51)
[2018-01-27] MEDS: HYDROmorphone 2 MG/1 ML IVP PRN ×3 (03:45→19:45)
[2018-01-27] MEDS: ceFAZolin Inj 2gm (Premix) 2 GM/50 ML BAG IV SCH ×3 (05:00→21:58)
[2018-01-27] MEDS: Insulin Lispro Flexpen 300 UNIT/3 ML INSULN.PEN SUBCUT SCH ×3 (07:50→16:23)
--- NOTE | 2018-01-27 08:36 | ORTHO.PROG ---
Last Taken Vital Signs: Vital Signs - Last Taken Temperature 97 F 01/27/18 07:10 Pulse Rate 64 01/27/18 07:10 Respiratory Rate 18 01/27/18 07:10 Blood Pressure 138/67 01/27/18 07:10 Pulse Ox 96 01/27/18 07:10 Subjective: Patient lying in bed. Not reporting any pain. Objective: Vital signs stable patient afebrile. Right foot dressing clean and dry. We'll not change that today. Probably wait till tomorrow morning. Cultures pending Gram stain no organisms Assessment: Impression: Doing well following right fifth ray amputation. Plan: Plan: Is to figure out the best antibiotic coverage for him. Will change his dressing in the morning. Likely will require a few weeks of IV antibiotics. This is given the fact that his foot had dorsal cellulitis last night.
[2018-01-27] MEDS ORDERED: Insulin NPH/Reg 70/30 Kwikpen 100 UNIT/ML INSULN.PEN SUBCUT SCH (09:00)
[2018-01-27] MEDS: VENLAFAXINE XR 75 MG CAP PO SCH (09:07)
[2018-01-27] MEDS: LISINOPRIL 20 MG TABLET PO SCH (09:07)
--- NOTE | 2018-01-27 09:11 | PDOC(PROG) ---
Date of Service: 01/27/18 Time of Service: 09:00 Interval History: Subjective Patient is denying complaint. Some ache in his foot but nothing significant. Objective : Data - Labs CBC and BMP: 01/27/18 09:00 01/25/18 04:30 Objective : Exam - General General Appearance: No Acute Distress, Cooperative - Head Head Exam: Normal Inspection - Eye Eye Exam: Normal Appearance - ENT ENT Exam: Normal Exam - Neck Neck Exam: Normal Inspection - Respiratory Respiratory Exam: Clear to Auscultation - Bilaterally - Cardiovascular Cardiovascular Exam: RRR - GI/Abdominal GI/Abdominal Exam: Normal Bowel Sounds, Non Tender, Non Distended, Soft, No Organomegaly - Rectal Rectal Exam: Deferred - External Exam: Deferred - Extremities Extremities Exam: Normal Inspection Additional Extremities Exam Details: Dressing applied to the right foot. - Back Back Exam: Normal Inspection - Neurological Neurological Exam: Alert, Oriented x 3, CN II-XII Intact, No Facial Droop, Speech Intact / Clear, Moves All Extremities Equally - Psychiatric Psychiatric Exam: Normal Affect Assessment and Plan - Patient Problems (1) Acute osteomyelitis of metatarsal bone of right foot Current Visit: Yes Status: Acute Comment: Status post ray amputation of the fifth metatarsal. Continue current antibiotics. I did leave a message for [facility] but I did not get a call from them yet will call them again. Code(s): M86.171 - Other acute osteomyelitis, right ankle and foot (2) Diabetic foot ulcer Current Visit: No Status: Acute Comment: Status post ray amputation. Continue current antibiotics. Code(s): E11.621 - Type 2 diabetes mellitus with foot ulcer; L97.509 - Non- pressure chronic ulcer of other part of unspecified foot with unspecified severity Qualifiers: Diabetic foot ulcer location: toe Diabetes mellitus type: type 2 Laterality: right Non-pressure ulcer stage: unspecified non-pressure ulcer stage Qualified Code(s): E11.621 - Type 2 diabetes mellitus with foot ulcer; L97.519 - Non-pressure chronic ulcer of other part of right foot with unspecified severity (3) Diabetes Current Visit: No Status: Acute Comment: Same med Code(s): E11.9 - Type 2 diabetes mellitus without complications Qualifiers: Diabetes mellitus type: type 2 Diabetes mellitus watcher [employer] insulin use: with watcher [employer] use Diabetes mellitus complication status: with skin complications Diabetes mellitus complication detail: with foot ulcer Qualified Code(s): E11.621 - Type 2 diabetes mellitus with foot ulcer; L97.509 - Non-pressure chronic ulcer of other part of unspecified foot with unspecified severity; Z79.4 - [facility] (current) use of insulin (4) Depression Current Visit: No Status: Acute Comment: Same medications Code(s): F32.9 - Major depressive disorder, single episode, unspecified Qualifiers: Depression Type: unspecified Qualified Code(s): F32.9 - Major depressive disorder, single episode, unspecified (5) Hypertension Current Visit: No Status: Acute Comment: Same med Code(s): I10 - Essential (primary) hypertension Qualifiers: Hypertension type: essential hypertension Qualified Code(s): I10 - Essential (primary) hypertension
[2018-01-27 09:13] LABS: Hematocrit [HCT] 38.6 % (42.0-52.0); Hemoglobin [HGB] 12.8 g/dL (14.0-18.0); MEAN CORPUSCULAR HEMOGLOBIN 31.1 PG (27-31); MEAN CORPUSCULAR HGB CONC 33.2 g/dL (33-37); MEAN CORPUSCULAR VOLUME 93.9 FL (80-90); MEAN PLATELET VOLUME 9.7 FL (7.4-12.2); RED BLOOD COUNT 4.11 10^6/uL (4.70-6.10)
[2018-01-27] MEDS ORDERED: Lidocaine 1% 10 MG/ML - 20 ML VIAL SUBCUT PRN (15:41)
[2018-01-27] MEDS ORDERED: LIDOCAINE 2% 20 MG/ML - 20 ML VIAL SUBCUT PRN (15:41)
--- NOTE | 2018-01-27 16:11 | PT.PROG ---
Progress Note Progress Note: S. Patient stated that he is feeling good however would like to try a cane as well as crutches. O. Patient ambulated 40 feet to the stair well then ascended and descended 12 stairs with the crutches, Patient then ambulated 30 feet with the single point cane he was left in bed with call light. A. Patient tolerated ambulation and stair training well, he was able to perform with no pain or problems. Patient has met all goals at this time. P. Patient was only seen for gait training at this time.
[2018-01-27] MEDS: HYDROcodone-APAP 10 MG-325 MG TABLET PO PRN ×2 (17:50→23:25)
[2018-01-27] MEDS: Insulin NPH/Reg 70/30 Kwikpen 100 UNIT/ML INSULN.PEN SUBCUT SCH (17:53)
--- NOTE | 2018-01-27 18:38 | DI ---
XR PICC Line Insertion 5 Yrs>, US Vascular Access-US Guidance,01/27/2018 3:50 PM: INSERTION OF PICC LINE WITH FLUOROSCOPIC GUIDANCE, 01/27/2018 3:50 PM: Clinical History: Need for long-term IV access. Technique: After informed, signed consent was obtained, the right arm was prepped with Betadine and a lcohol. Venipuncture was achieved as described with the ultrasound report and the introducer sheath w as positioned in place using the Seldinger technique with local anesthesia (1% Lidocaine without epin ephrine). A 4 [place] double lumen Bard Power Picc Solo PICC catheter was inserted and the tip was positioned wi th fluoroscopic guidance. Fluoroscopic documentation was with a spot film. The standard dry sterile dressing kit was used to secure the catheter. Final catheter documentation w as with a spot film of the chest and this film confirmed that the catheter tip was in the distal SVC. The patient tolerated the procedure well and was discharged in stable condition. Standard instructio ns regarding wound care precautions and dressing changes were discussed with the patient prior to dis charge. Inside Steward/Stewardess: Bhargav santos M.D. Broom Maker: None. Complications: None. Reading: PICC line placement as above.
--- NOTE | 2018-01-27 18:39 | DI ---
XR CXR 1VW,01/27/2018 3:50 PM: Clinical History: Need for long-term IV access. Technique: After informed, signed consent was obtained, the right arm was prepped with Betadine and a lcohol. Venipuncture was achieved as described with the ultrasound report and the introducer sheath w as positioned in place using the Seldinger technique with local anesthesia (1% Lidocaine without epin ephrine). A 4 [place] double lumen Bard Power Picc Solo PICC catheter was inserted and the tip was positioned wi th fluoroscopic guidance. Fluoroscopic documentation was with a spot film. The standard dry sterile dressing kit was used to secure the catheter. Final catheter documentation w as with a spot film of the chest and this film confirmed that the catheter tip was in the distal SVC. The patient tolerated the procedure well and was discharged in stable condition. Standard instructio ns regarding wound care precautions and dressing changes were discussed with the patient prior to dis charge. Sap Hana Developer: Bhargav santos M.D. Senior Net Web Developer: None. Complications: None. Reading: PICC line placement as above.
[2018-01-27] MEDS: HEPARIN 500 UNIT/5 ML SYRINGE FOR CENTRAL LINE IVP PRN ×2 (19:56→22:34)
[2018-01-28] MEDS: HYDROmorphone 2 MG/1 ML IVP PRN (00:07)
[2018-01-28] MEDS: HEPARIN 500 UNIT/5 ML SYRINGE FOR CENTRAL LINE IVP PRN ×2 (00:13→09:53)
[2018-01-28 05:00] LABS: BLOOD UREA NITROGEN 16 mg/dL (7-22); BUN/CREATININE RATIO 22.85 (6-20)
[2018-01-28] MEDS: ceFAZolin Inj 2gm (Premix) 2 GM/50 ML BAG IV SCH (05:55)
[2018-01-28] MEDS: Insulin NPH/Reg 70/30 Kwikpen 100 UNIT/ML INSULN.PEN SUBCUT SCH (07:49)
[2018-01-28] MEDS ORDERED: oxyCODONE/APAP 10/325 Tab 1 EACH TAB PO PRN (07:58)
--- NOTE | 2018-01-28 08:14 | DCSUMMARY ---
Hospitalization Summary Admit Date: 01/24/2018 Discharge Date: 01/28/18 Hospital Course: Discharge diagnoses 1. Diabetic foot ulcer 2. Osteomyelitis of the right fifth metatarsal status post ray amputation 3. Diabetes 4. Hypertension 5. Depression Hospital course This a 57 years old male with medical history significant for history of diabetes, hypertension, diabetic Foot also recent admission for a plantar cellulitis at that time he was treated with IV antibiotics initially and then switched to oral antibiotics including Augmentin and doxycycline. He did have incision and drainage to last time by Dr. Pedraza. He did not finish the doxycycline because he could not afford it. He's been followed up by Dr. Pedraza in this clinic to look at the wound and the also. Was doing well apparently until 3 days before admission, there was increase the redness and pain and because of that he was admitted. On initial admission MRI in December showed no evidence of osteomyelitis. This time there was evidence of osteomyelitis. So he had an ray amputation done. He was put on Ancef. I saw him later on during his hospital stay we continued the same treatment. First he had amputation and the wound was packed and then Dr. Pedraza took him again and closed the wound on Wednesday night. On the day of discharge there was still some redness on the dorsum of the foot but the looks better compared to the patient that I so and also based on assessment of Dr. Pedraza. I did speak with infectious disease they recommended IV antibiotics with Invanz for 2 weeks. He did have a PICC line inserted. I think we'll discharge him home for IV antibiotic therapy. We'll try to get also appointment with infectious disease. Laboratory Results 01/27/18 01/27/18 01/28/18 Range/Units 09:00 09:00 04:33 WBC 8.39 (4.8-10.8) 10^3/uL RBC 4.11 L (4.70-6.10) 10^6/uL Hgb 12.8 L (14.0-18.0) g/dL Hct 38.6 L (42.0-52.0) % MCV 93.9 H (80-90) FL MCH 31.1 H (27-31) PG MCHC 33.2 (33-37) g/dL RDW Std Deviation 41.4 (39-50) fL RDW Coeff of Damien 12.4 (11.5-14.5) % Plt Count 255 (140-350) 10*3/uL MPV 9.7 (7.4-12.2) FL Sodium 140 (135-145) meq/L Potassium 3.7 L (3.8-5.2) meq/L Chloride 102 (98-112) meq/L Carbon Dioxide 31 (23-33) meq/L Anion Gap 7 (5-20) BUN 16 (7-22) mg/dL Creatinine 0.7 (0.70-1.50) mg/dL Estimated GFR > 60 (>60 ml/min/1.73m(2)) BUN/Creatinine Ratio 22.85 H (6-20) Glucose 70 L (78-110) mg/dL Calculated Osmolality 288.0 (267-292) mOsm/kg Calcium 8.9 (8.7-10.7) mg/dL C-Reactive Protein 5.9 H 5.1 H (0.0-0.9) mg/dL Exam - Vitals Vital Signs: Vital Signs Temperature 97.6 F Temperature Source Oral Pulse Rate [Pulse Oximeter] 67 Pulse Rate 72 Respiratory Rate 20 Blood Pressure [Right Arm] 116/56 Blood Pressure [Left Arm] 147/75 Blood Pressure 149/55 Pulse Ox 91 Oxygen Flow Rate ra Oxygen Delivery Method Room Air Height 6 ft Weight 228 lb 12.8 oz Patient Problems - Patient Problem List (1) Acute osteomyelitis of metatarsal bone of right foot Current Visit: No Status: Acute Code(s): M86.171 - Other acute osteomyelitis , right ankle and foot Category: Medical (2) Diabetic foot ulcer Current Visit: No Status: Acute Code(s): E11.621 - Type 2 diabetes mellitus with foot ulcer; L97.509 - Non-pressure chronic ulcer of other part of unspecified foot with unspecified severity Qualifiers: Diabetic foot ulcer location: toe Diabetes mellitus type: type 2 Laterality: right Non-pressure ulcer stage: unspecified non-pressure ulcer stage Qualified Code(s): E11.621 - Type 2 diabetes mellitus with foot ulcer; L97.519 - Non-pressure chronic ulcer of other part of right foot with unspecified severity Category: Medical (3) Diabetes Current Visit: No Status: Acute Code(s): E11.9 - Type 2 diabetes mellitus without complications Qualifiers: Diabetes mellitus type: type 2 Diabetes mellitus [employer] insulin use: with [facility] use Diabetes mellitus complication status: with skin complications Diabetes mellitus complication detail: with foot ulcer Qualified Code(s): E11.621 - Type 2 diabetes mellitus with foot ulcer; L97.509 - Non-pressure chronic ulcer of other part of unspecified foot with unspecified severity; Z79.4 - intermediate (current) use of insulin Category: Medical (4) Depression Current Visit: No Status: Acute Code(s): F32.9 - Major depressive disorder, single episode, unspecified Qualifiers: Depression Type: unspecified Qualified Code(s): F32.9 - Major depressive disorder, single episode, unspecified Category: Medical (5) Hypertension Current Visit: No Status: Acute Code(s): I10 - Essential (primary) hypertension Qualifiers: Hypertension type: essential hypertension Qualified Code(s): I10 - Essential (primary) hypertension Category: Medical
--- NOTE | 2018-01-28 08:19 | ORTHO.PROG ---
Last Taken Vital Signs: Vital Signs - Last Taken Temperature 97.6 F 01/28/18 07:54 Pulse Rate 72 01/28/18 07:54 Respiratory Rate 20 01/28/18 07:54 Blood Pressure 149/55 01/28/18 07:54 Pulse Ox 91 01/28/18 07:54 Subjective: Patient is seen in his room today. Doing overall fairly well. Having some pain. Objective: Vital signs stable patient afebrile. C-reactive protein 5.1 which is somewhat decreased. Right foot still looks inflamed around the incision but not as intense as it was. The packing was removed from his foot today without complication. Cultures from the last surgery are still not growing anything. Assessment: Impression: Doing fairly well postop day 2 from closure of right fifth ray amputation. Wound looks pretty good. The inflammation is still concerning but hopefully it will recede with time Plan: Plan: Is that he will be discharged today and receive IV Invanz for 2 weeks total. I will try to see him tomorrow and Wednesday to do a dressing change each time so I can keep a close eye on his wound.
--- NOTE | 2018-01-28 08:32 | DCSUMMARY ---
Hospitalization Summary Admit Date: 01/24/2018 Discharge Date: 01/28/18 Hospital Course: Discharge diagnoses 1. Diabetic foot ulcer 2. Cellulitis of the dorsum of the right foot 3. Osteomyelitis of the right fifth metatarsal status post ray amputation 4. Diabetes 5. Hypertension Hospital course This is a 57-year-old male with medical history significant for history of diabetes, hypertension and recent admission for diabetic foot ulcer with cellulitis for which he had incision and drainage and IV antibiotics for treatment initially. Osteomyelitis was ruled out on then. He was discharged on Augmentin and doxycycline. However he could not afford the doxycycline and continued with Augmentin. He's been followed up by Dr. Pedraza in his clinic. Apparently was doing well until last Wednesday when he started to have more pain and redness goes on the dorsum of the right foot. Patient was admitted on Wednesday and was started on antibiotics with Ancef. He was admitted by Dr. Hamilton please see his note. This time MRI did show osteomyelitis. The next day Dr. pedraza took him to surgery and have ray amputation of the fifth metatarsal. he kept the wound open and took him again on wednesday and closed the wound. we continued with IV antibiotics. on the day of discharge he still had some redness on the dorsum of the foot but looks better based on the picture that I saw also based on the assessment of Dr. pedraza. I did speak with infectious disease and they recommended invanz for 2 weeks. I did speak with Dr. lombardi. he'll be discharged on 2 weeks of IV antibiotics will try to get him an appointment with infectious disease also. he'll be followed up by Dr. epdraza Laboratory Results 01/27/18 01/27/18 01/28/18 Range/Units 09:00 09:00 04:33 WBC 8.39 (4.8-10.8) 10^3/uL RBC 4.11 L (4.70-6.10) 10^6/uL Hgb 12.8 L (14.0-18.0) g/dL Hct 38.6 L (42.0-52.0) % MCV 93.9 H (80-90) FL MCH 31.1 H (27-31) PG MCHC 33.2 (33-37) g/dL RDW Std Deviation 41.4 (39-50) fL RDW Coeff of Damien 12.4 (11.5-14.5) % Plt Count 255 (140-350) 10*3/uL MPV 9.7 (7.4-12.2) FL Sodium 140 (135-145) meq/L Potassium 3.7 L (3.8-5.2) meq/L Chloride 102 (98-112) meq/L Carbon Dioxide 31 (23-33) meq/L Anion Gap 7 (5-20) BUN 16 (7-22) mg/dL Creatinine 0.7 (0.70-1.50) mg/dL Estimated GFR > 60 (>60 ml/min/1.73m(2)) BUN/Creatinine Ratio 22.85 H (6-20) Glucose 70 L (78-110) mg/dL Calculated Osmolality 288.0 (267-292) mOsm/kg Calcium 8.9 (8.7-10.7) mg/dL C-Reactive Protein 5.9 H 5.1 H (0.0-0.9) mg/dL Discharge instruction Diet diabetic Medications Current Medication(s) 3 Medication Instructions Recorded Confirmed Type Aripiprazole [Abilify] 10 mg PO DAILY 12/27/17 01/24/18 History Insulin NPL/Insulin Lispro 50 unit SUBCUT BID 12/27/17 01/24/18 History [Humalog Mix 75-25 Pen] Lisinopril 40 mg PO DAILY 12/27/17 01/24/18 History Metformin HCl 1,000 mg PO BID 12/27/17 01/24/18 History Venlafaxine HCl [Effexor] 225 mg PO DAILY 12/27/17 01/24/18 History Ertapenem Inj [INVanz Inj] 1 gm IV Q24H #13 vial 01/28/18 Rx oxyCODONE/APAP 10/325 Tab 1 ea PO Q4H PRN #25 tab 01/28/18 Rx [Percocet 10/325 Tab] Follow-up with PCP 1-2 weeks, with Dr. Pedraza and with infectious disease in 1-2 weeks Exam - Vitals Vital Signs: Vital Signs Temperature 97.6 F Temperature Source Oral Pulse Rate [Pulse Oximeter] 67 Pulse Rate 72 Respiratory Rate 20 Blood Pressure [Right Arm] 116/56 Blood Pressure [Left Arm] 147/75 Blood Pressure 149/55 Pulse Ox 91 Oxygen Flow Rate ra Oxygen Delivery Method Room Air Height 6 ft Weight 228 lb 12.8 oz - General General Appearance: No Acute Distress, Cooperative - Head Head Exam: Normal Inspection - Eye Eye Exam: POSITIVE: Normal Appearance - ENT ENT Exam: POSITIVE: Normal Exam - Neck Neck Exam: Normal Inspection - Respiratory Respiratory Exam: POSITIVE: Clear to Auscultation - Bilaterally - Cardiovascular Cardiovascular Exam: POSITIVE: RRR - GI/Abdominal GI/Abdominal Exam: POSITIVE: Normal Bowel Sounds, Non Tender, Non Distended, Soft, No Organomegaly - Rectal Rectal Exam: POSITIVE: Deferred - External Exam: POSITIVE: Deferred - Extremities Additional Extremities Exam Details: The wound looks clean. There is still some redness on the dorsum of the right foot. Based on the picture that I so looks better than before. No discharge. - Neurological Neurological Exam: POSITIVE: Alert, Oriented x 3, CN II-XII Intact, No Facial Droop, Speech Intact / Clear, Moves All Extremities Equally - Psychiatric Psychiatric Exam: POSITIVE: Normal Affect Patient Problems - Patient Problem List (1) Acute osteomyelitis of metatarsal bone of right foot Status: Acute Code(s): M86.171 - Other acute osteomyelitis, right ankle and foot Category: Medical (2) Diabetic foot ulcer Status: Acute Code(s): E11.621 - Type 2 diabetes mellitus with foot ulcer; L97.509 - Non-pressure chronic ulcer of other part of unspecified foot with unspecified severity Qualifiers: Diabetic foot ulcer location: toe Diabetes mellitus type: type 2 Laterality: right Non-pressure ulcer stage: unspecified non-pressure ulcer stage Qualified Code(s): E11.621 - Type 2 diabetes mellitus with foot ulcer; L97.519 - Non-pressure chronic ulcer of other part of right foot with unspecified severity Category: Medical (3) Diabetes Status: Acute Code(s): E11.9 - Type 2 diabetes mellitus without complications Qualifiers: Diabetes mellitus type: type 2 Diabetes mellitus [employer] insulin use: with sn[facility] use Diabetes mellitus complication status: with skin complications Diabetes mellitus complication detail: with foot ulcer Qualified Code(s): E11.621 - Type 2 diabetes mellitus with foot ulcer; L97.509 - Non-pressure chronic ulcer of other part of unspecified foot with unspecified severity; Z79.4 - nursing home (current) use of insulin Category: Medical (4) Depression Status: Acute Code(s): F32.9 - Major depressive disorder, single episode, unspecified Qualifiers: Depression Type: unspecified Qualified Code(s): F32.9 - Major depressive disorder, single episode, unspecified Category: Medical (5) Hypertension Status: Acute Code(s): I10 - Essential (primary) hypertension Qualifiers: Hypertension type: essential hypertension Qualified Code(s): I10 - Essential (primary) hypertension Category: Medical
[2018-01-28] MEDS ORDERED: Ertapenem Inj 1 GM in Sodium Chloride 0.9% 100 ML IV SCH (09:00)
[2018-01-28] MEDS: VENLAFAXINE XR 75 MG CAP PO SCH (09:06)
[2018-01-28] MEDS: LISINOPRIL 20 MG TABLET PO SCH (09:06)
[2018-01-28 09:41] VITALS: BP 165/69; RESP 12; TEMP 97.9; O2SAT 92
--- NOTE | 2018-01-28 12:14 | PT AM DAY ---
Diagnosis : Right Foot Diabetic Ulcer AM - Physical Therapy O: The patient was issued a CAM walker and instructed in its proper use and care. P: No further therapy is indicated at this time. MTDD
== END 2018-01-28 10:41 | disposition home or self-care (01) | DRG 475 ==
LOC: MED/SURG 14:05 → OPS 01-25 14:25 → MED/SURG 01-25 17:06 → OPS 01-26 16:03 → MED/SURG 01-26 20:38
PROVIDERS: ADMIT Orthopaedic Surgery; ATTEND Internal Medicine